=== PATIENT | female | born 1965 | race Caucasian/White ===

== ENCOUNTER 2021-02-26 16:13 | Observation (INO) | payer OTHER ==
[~2021-02-26] VITALS: Ht 172.7 cm; Wt 98.9 kg
[~2021-02-26 16:13] MED LIST: KEFLEX CAP 500500 MG PO; NORCO 5-325 TA1 EACH PO
[2021-02-26 18:01] LABS: HEMOGLOBIN 15.6 gm/dl (12.3-15.3); RED BLOOD COUNT 5.25 M/UL (4.00-5.10); WHITE BLOOD COUNT 10.2 K/UL (4.5-11.0)
[2021-02-26 18:25] LABS: BUN/CREATININE RATIO 25 (0-10)
[2021-02-27 06:02] LABS: HEMOGLOBIN 14.3 gm/dl (12.3-15.3); WHITE BLOOD COUNT 7.9 K/UL (4.5-11.0)
[2021-02-27 06:35] LABS: BUN/CREATININE RATIO 23 (0-10)
[2021-02-27] MEDS ORDERED: DRISDOL1250 MCG PO (10:54)
[2021-02-27] MEDS ORDERED: TRIAMTERENE-HC1 EAC1 PO (10:55)
[2021-02-27] MEDS ORDERED: LOPRESSOR 25 MG25 MG PO (11:44)
[2021-02-27] MEDS ORDERED: ASPIRIN81 MG PO (11:44)
== END 2021-02-27 12:02 | disposition home or self-care (01) ==
LOC: ER1 16:13 → CDU 18:47
PROVIDERS: Physician Assistant Medical; ADMIT Internal Medicine
DX: I48.91 Unspecified atrial fibrillation (principal); R07.89 Other chest pain; I10 Essential (primary) hypertension; Z98.890 Other specified postprocedural states; Z79.899 Other long term (current) drug therapy; Z20.822 Contact with and (suspected) exposure to COVID-19
CPT/HCPCS: ECHO; 71045; 80053; 82550; 82553; 83735; 83874; 84439; 84443; 84484; 85025; 85379; 85610; 85730; 93005; 93306; 99285; G0378; U0002